=== PATIENT | female | born 1950 | race Caucasian/White ===

== ENCOUNTER 2016-07-09 13:00 | Outpatient (CLI) | payer OTHER | END 2016-07-09 20:52 | disposition home or self-care (01) | LOC: SMA 13:00 | PROVIDERS: ATTEND Family Medicine | DX: Z12.31 Encounter for screening mammogram for malignant neoplasm of breast (principal) | CPT/HCPCS: 77067; G0202 ==

== ENCOUNTER 2016-08-08 12:24 | Outpatient (CLI) | payer OTHER | END 2016-08-08 18:51 | disposition home or self-care (01) | LOC: SMA 12:24 | PROVIDERS: ATTEND Family Medicine | DX: N63 Unspecified lump in breast (principal) | CPT/HCPCS: 76642; G0206 ×2 ==

== ENCOUNTER 2017-04-09 13:24 | Outpatient (CLI) | payer OTHER | END 2017-04-09 20:13 | disposition home or self-care (01) | LOC: SMA 13:24 | PROVIDERS: ATTEND Family Medicine | DX: N63.10 Unspecified lump in the right breast, unspecified quadrant (principal) | CPT/HCPCS: 76642; G0206 ==

== ENCOUNTER 2017-11-24 10:47 | Outpatient (CLI) | payer OTHER | END 2017-11-24 19:55 | disposition home or self-care (01) | LOC: SMA 10:47 | PROVIDERS: ATTEND Family Medicine | DX: R92.1 Mammographic calcification found on diagnostic imaging of breast (principal) | CPT/HCPCS: 77066 ==

== ENCOUNTER 2019-01-11 13:12 | Outpatient (CLI) | payer OTHER | END 2019-01-11 20:33 | disposition home or self-care (01) | LOC: SMA 13:12 | PROVIDERS: ATTEND Family Medicine | DX: Z12.31 Encounter for screening mammogram for malignant neoplasm of breast (principal) | CPT/HCPCS: 77067 ==

== ENCOUNTER 2020-03-23 12:58 | Outpatient (CLI) | payer OTHER, MEDICAID | END 2020-03-23 20:06 | disposition home or self-care (01) | LOC: SLB 12:58 | PROVIDERS: ATTEND Family Medicine | DX: Z12.31 Encounter for screening mammogram for malignant neoplasm of breast (principal) | CPT/HCPCS: 77067 ==

== ENCOUNTER 2021-06-12 13:01 | Outpatient (CLI) | payer OTHER, MEDICAID | END 2021-06-13 14:09 | disposition home or self-care (01) | LOC: SMA 13:01 | PROVIDERS: ATTEND Family Medicine | DX: Z12.31 Encounter for screening mammogram for malignant neoplasm of breast (principal) | CPT/HCPCS: 77067 ==

== ENCOUNTER 2022-10-18 13:04 | Outpatient (CLI) | payer OTHER, MEDICAID | END 2022-10-18 19:12 | disposition home or self-care (01) | LOC: SMA 13:04 | PROVIDERS: ATTEND Nurse Practitioner Family | DX: Z12.31 Encounter for screening mammogram for malignant neoplasm of breast (principal) | CPT/HCPCS: 77067 ==

== ENCOUNTER 2022-11-22 14:21 | Outpatient (CLI) | payer OTHER, MEDICAID | END 2022-11-22 19:06 | disposition home or self-care (01) | LOC: SMA 14:21 | PROVIDERS: ATTEND Nurse Practitioner Family | DX: R92.1 Mammographic calcification found on diagnostic imaging of breast (principal); R92.2 Inconclusive mammogram; R92.8 Other abnormal and inconclusive findings on diagnostic imaging of breast | CPT/HCPCS: 77065 ==

== ENCOUNTER 2022-12-23 10:01 | Outpatient (CLI) | payer OTHER, MEDICAID | END 2022-12-23 16:00 | disposition home or self-care (01) | LOC: SUS 10:01 | PROVIDERS: ATTEND Family Medicine | DX: R92.8 Other abnormal and inconclusive findings on diagnostic imaging of breast (principal); R92.1 Mammographic calcification found on diagnostic imaging of breast | CPT/HCPCS: 76642 ==